=== PATIENT | female | born 1995 ===

== ENCOUNTER 2018-05-10 06:07 | Day surgery (SDC) | payer OTHER | END 2018-05-10 13:15 | disposition home or self-care (01) | LOC: CIR.AMB 06:07 | DX: H72.02 Central perforation of tympanic membrane, left ear (principal); H66.92 Otitis media, unspecified, left ear ==

== ENCOUNTER 2018-11-08 06:00 | Day surgery (SDC) | payer OTHER | END 2018-11-08 16:45 | disposition home or self-care (01) | LOC: CIR.AMB 06:00 | DX: H72.01 Central perforation of tympanic membrane, right ear (principal); H66.91 Otitis media, unspecified, right ear; H61.321 Acquired stenosis of right external ear canal secondary to inflammation and infection; H61.811 Exostosis of right external canal ==